=== PATIENT | female | born 1990 | race Caucasian/White ===

== ENCOUNTER 2022-06-29 22:39 | Emergency (ER) | payer OTHER, SELFPAY ==
--- NOTE | ~2022-06-29 | XR_ITS ---
Right foot Technique: AP, oblique, and lateral views were obtained. Clinical History: Pain Findings: There is a nondisplaced oblique, intra-articular fracture at the lateral aspect of the base of the distal phalanx of the great toe. Joint spaces are preserved without erosive or degenerative c hange. Soft tissues are unremarkable. Impression: Oblique, nondisplaced, intra-articular fracture at the lateral aspect of the base of the distal phala nx of the great toe. Reviewed, dictated and finalized at location M. Impression: Oblique, nondisplaced, intra-articular fracture at the lateral aspect of the ba se of the distal phalanx of the great toe.
[2022-06-29 22:44] VITALS: BP 107/73; PULSE 100; RESP 18; TEMP 36.8; O2SAT 100
[2022-06-29 23:53] VITALS: BP 102/74; PULSE 78; RESP 18; O2SAT 98
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
== END 2022-06-30 01:58 ==
PROVIDERS: Emergency Provider Physician Assistant; PCP Internal Medicine
DX: M79.672 Pain in left foot (principal); M79.671 Pain in right foot; Z59.00 Homelessness unspecified
CPT/HCPCS: 73630; 99283; 99284

== ENCOUNTER 2022-07-06 18:54 | Emergency (ER) | payer OTHER, SELFPAY ==
[2022-07-06 19:19] VITALS: BP 123/80; PULSE 88; RESP 18; TEMP 36.8; O2SAT 97
--- NOTE | 2022-07-06 19:57 | ED.ANXIETY ---
HPI - Anxiety General Chief Complaint: Anxiety Stated Complaint: anxiety/drug use today Time Seen by Provider: 07/06/22 19:39 History of Present Illness HPI narrative: Patient is a 31-year-old female here due to depression and suicidal ideations. Patient states that she has felt depressed for a while , and has had some thoughts about hurting herself today. She does not have a plan for what she might do to carry out suicide. Denies history of previous attempts. She does admit to drug use today but states that she has lots of brain fog and does not remember what she used. She states that she feels confused and scared right now but has no physical complaints. She is never been admitted to psychiatric facility. Related Data Home Medications Medication Instructions Recorded Confirmed No Home Medications 07/06/22 07/06/22 Allergies Allergy/AdvReac Type Severity Reaction Status Date / Time No Known Allergies Allergy Unverified 07/06/22 19:42 Review of Systems Review of Systems: Gen.: Denies fevers or chills Eyes: Denies eye pain or visual change ENT: Denies congestion Respiratory: Denies shortness of breath or cough CV: Denies chest pain or palpitations GI: Denies abdominal pain nausea, emesis or diarrhea denies burning, urgency, frequency or hematuria Musculoskeletal: Denies back pain or muscle pain Neuro: Denies numbness, tingling, weakness or focal weakness Psych: Reports suicidal ideations Skin: Denies rash Except as documented, all other systems reviewed and negative [facility] Past Medical History Medical History No pertinent past medical history Surgical History Surgical History No pertinent past surgical history Social History Social History (Updated 06/30/22 @ 01:39 by Carla Groves PA-C) Substance use type: heroin and IV drugs Current Housing: I Do Not Have Housing Exam Narrative: APPEARANCE: Tearful, guarded affect, avoids eye contact, no acute distress Head: Normocephalic and atraumatic. EYES: PERRLA/EOMI, conjunctivae clear NOSE: No nasal drainage EARS: External ear normal in appearance THROAT: Oropharynx is clear. Mucous membranes are moist. NECK: Supple. No adenopathy, no masses. RESPIRATORY: Airway patent, respirations nonlabored. Clear to auscultation bilaterally, no rales, rhonchi, wheezing. CARDIOVASCULAR: Regular rate and rhythm without murmurs, rubs, or gallops. ABDOMINAL: Normoactive bowel sounds. Soft, nontender, nondistended. No rebound tenderness or guarding. MUSCULOSKELETAL: Extremities are warm and well-perfused. Moves all extremities well. No edema. NEURO: Normal speech. No focal neurologic deficits. SKIN: Skin is warm and dry. No rashes. PSYCHIATRIC: Tearful, avoids eye contact Course Vital Signs Vital signs: Vital Signs Temperature 98.3 F 07/06/22 19:19 Pulse Rate 88 07/06/22 19:19 Respiratory Rate 18 07/06/22 19:19 Blood Pressure 123/80 07/06/22 19:19 Pulse Oximetry 97 07/06/22 19:19 Oxygen Delivery Room Air 07/06/22 19:19 Temperature 98.3 F 07/06/22 19:19 Pulse Rate 88 07/07/22 06:07 Respiratory Rate 18 07/07/22 06:07 Blood Pressure 116/88 07/07/22 06:07 Pulse Oximetry 98 07/07/22 06:07 Oxygen Delivery Room Air 07/06/22 19:19 MDM - Anxiety MDM Narrative Medical decision making narrative: 31-year-old female with history of drug use here for evaluation of suicidal ideation. She is tearful but nontoxic in appearance and has normal vital signs. Basic labs are unremarkable. Her TSH is slightly low and her T4 is slightly elevated but unlikely to be causing her suicidal ideation. UDS is positive for benzos. She is medically clear for crisis evaluation. Crisis came to evaluate patient at bedside, believes she needs to be placed inpatient either for substance use or suicidal ideation.
[2022-07-06 20:22] LABS: Basophils Percent Auto 0.5 % (0.2-1.2); Eosinophils Absolute Auto 0.1 K/mm3 (0-0.3); Eosinophils Percent Auto 2.1 % (0-4.4); Hematocrit 36.2 % (37.0-47.0); Hemoglobin 12.1 g/dL (12.0-15.0); Immature Granulocyte Absolute 0.01 K/mm3 (0.00-0.031); Immature Granulocyte Percent A 0.2 % (0-0.5); Lymphocytes Absolute Auto 1.84 K/mm3 (0.9-3.2); Lymphocytes Percent Auto 42.6 % (18.3-44.2); Mean Corpuscular HGB Conc 33.4 g/dl (32-36); Mean Corpuscular Hemoglobin 29.8 pg (26-34); Mean Corpuscular Volume 89.2 fl (80-100); Mean Platelet Volume 8.9 fl (7.4-10.4); Monocytes Absolute Auto 0.4 K/mm3 (0.1-0.6); Monocytes Percent Auto 8.1 % (2.6-8.5); Neutrophils Percent Auto 46.5 % (45.5-73.1); Platelet Count Result 233 k/mm3 (150-375); Red Blood Count 4.06 M/mm3 (4.2-5.4); Red Cell Distribution Width 14.1 % (11.5-14.5); White Blood Count 4.3 K/mm3 (4.5-10.0)
[2022-07-06 20:36] LABS: Ethanol < 10 mg/dL (<10)
[2022-07-06 20:38] LABS: Barbiturate Screen Urine Negative (Negative); Benzodiazepines Screen Urine Positive (Negative)
[2022-07-06 20:39] LABS: Amphetamine Screen Urine Negative (Negative); Cannabinoid Screen Urine Negative (Negative); Cocaine Screen Urine Negative (Negative); Methadone Screen Urine Negative (Negative); Opiate Screen Urine Negative (Negative); Phencyclidine Screen Urine Negative (Negative)
[2022-07-06 20:45] LABS: Alanine Aminotransferase 62 U/L (6-35); Albumin Level 3.7 g/dL (3.5-5.1); Alkaline Phosphatase 55 U/L (38-126); Anion Gap 3 mmol/L (8-16); Aspartate Amino Transferase 40 U/L (14-36); Bilirubin,Total 0.8 mg/dL (0.2-1.3); Blood Urea Nitrogen 9 mg/dL (7-17); Calcium 8.9 mg/dL (8.4-10.2); Carbon Dioxide 32 mmol/L (22-30); Chloride 102 mmol/L (98-107); Estimated CRCL calculation 116 ml/min; Estimated Glomerular Filt Rate > 60; Glucose 98 mg/dL (65-110); Potassium 3.2 mmol/L (3.4-5.0); Sodium 137 mmol/L (137-145)
[2022-07-06 20:49] LABS: Appearance Urine Turbid (Clear); Bacteria Urine 1+ /hpf; Bilirubin Urine 1+ (Negative); Blood Urine Negative (Negative); Calcium Oxalate Crystals Urine Present /hpf; Color Urine Dark Yellow (Yellow); Glucose Urine UA Negative (Negative); Ketones Urine Trace mg/dL (Negative); Leukocyte Esterase Ur Negative LEU/UL (Negative); Need Manual Microscopic Reviewed; Nitrate Urine Negative (Negative); Non Pathogenic Casts 0-2; Protein Urine 1+ mg/dL (Negative); Specific Grav Ur 1.031 (1.001-1.035); Squamous Epithelial Cell Urine Many /hpf (Few); WBC Urine 0-5 /hpf; pH Urine 5.5 (5.0-9.0)
[2022-07-06 20:52] LABS: Add Urine Microscopic? YES
[2022-07-06 21:15] LABS: Thyroid Stimulating Hormone 0.111 uIU/mL (0.465-4.680)
[2022-07-06 21:50] LABS: Influenza A QL RT-PCR Negative (Negative); Influenza B QL RT-PCR Negative (Negative); SARS-CoV-2 RNA PCR Negative (Negative)
[2022-07-07 00:48] VITALS: BP 109/74; PULSE 74; RESP 18; O2SAT 100
--- NOTE | 2022-07-07 03:00 | PC.NURSE ---
[facility] called and states that pt is accepted by Dr. Laguna. They state they will call back with a bed number and number to give nurse report
--- NOTE | 2022-07-07 05:07 | PC.NURSE ---
[facility] on the phone speaking with pt at this time
[2022-07-07 06:07] VITALS: BP 116/88; PULSE 88; RESP 18; O2SAT 98
--- NOTE | 2022-07-07 07:06 | PC.NURSE ---
ordered pt breakfast tray
== END 2022-07-07 07:43 ==
PROVIDERS: Emergency Medicine; Emergency Provider Physician Assistant; PCP Internal Medicine
DX: F32.A Depression, unspecified (principal); R45.851 Suicidal ideations; Z20.822 Contact with and (suspected) exposure to COVID-19
CPT/HCPCS: 36415; 80053; 80307; 81001; 81025; 84436; 84443; 85025; 87636; 99283

== ENCOUNTER 2022-07-24 22:07 | Emergency (ER) | payer OTHER, SELFPAY ==
[2022-07-24 22:11] VITALS: BP 111/71; PULSE 78; RESP 18; TEMP 36.6; O2SAT 100
[2022-07-24 22:34] LABS: Basophils Percent Auto 0.4 % (0.2-1.2); Eosinophils Absolute Auto 0.1 K/mm3 (0-0.3); Eosinophils Percent Auto 0.6 % (0-4.4); Hematocrit 46.6 % (37.0-47.0); Hemoglobin 15.7 g/dL (12.0-15.0); Immature Granulocyte Absolute 0.02 K/mm3 (0.00-0.031); Immature Granulocyte Percent A 0.2 % (0-0.5); Lymphocytes Absolute Auto 3.25 K/mm3 (0.9-3.2); Lymphocytes Percent Auto 33.6 % (18.3-44.2); Mean Corpuscular HGB Conc 33.7 g/dl (32-36); Mean Corpuscular Hemoglobin 30.4 pg (26-34); Mean Corpuscular Volume 90.1 fl (80-100); Mean Platelet Volume 8.8 fl (7.4-10.4); Monocytes Absolute Auto 0.6 K/mm3 (0.1-0.6); Neutrophils Absolute Auto 5.7 K/mm3 (1.3-6.7); Neutrophils Percent Auto 59.2 % (45.5-73.1); Platelet Count Result 397 k/mm3 (150-375); Red Blood Count 5.17 M/mm3 (4.2-5.4); Red Cell Distribution Width 13.9 % (11.5-14.5); White Blood Count 9.7 K/mm3 (4.5-10.0)
[2022-07-24 22:47] LABS: Alanine Aminotransferase 73 U/L (6-35); Alkaline Phosphatase 64 U/L (38-126); Anion Gap 13 mmol/L (8-16); Aspartate Amino Transferase 58 U/L (14-36); Bilirubin,Total 0.9 mg/dL (0.2-1.3); Blood Urea Nitrogen 8 mg/dL (7-17); Calcium 9.8 mg/dL (8.4-10.2); Carbon Dioxide 24 mmol/L (22-30); Chloride 108 mmol/L (98-107); Estimated CRCL calculation 87 ml/min; Estimated Glomerular Filt Rate > 60; Ethanol 156 mg/dL (<10); Glucose 105 mg/dL (65-110); Potassium 3.7 mmol/L (3.4-5.0); Sodium 145 mmol/L (137-145)
[2022-07-24 22:56] LABS: Appearance Urine Clear (Clear); Bacteria Urine None Seen /hpf; Bilirubin Urine Negative (Negative); Blood Urine 2+ (Negative); Color Urine Yellow (Yellow); Glucose Urine UA Negative (Negative); Ketones Urine Negative (Negative); Leukocyte Esterase Ur Negative LEU/UL (Negative); Nitrate Urine Negative (Negative); Non Pathogenic Casts 0-2; Protein Urine Negative (Negative); Squamous Epithelial Cell Urine Few /hpf (Few); Urobilinogen Urine 0.2 mg/dL (<2.0); WBC Urine 0-5 /hpf; pH Urine 5.5 (5.0-9.0)
[2022-07-24 23:07] VITALS: BP 105/65; PULSE 72; RESP 14; TEMP 36.6; O2SAT 99
[2022-07-24 23:08] LABS: Amphetamine Screen Urine Negative (Negative); Barbiturate Screen Urine Negative (Negative); Benzodiazepines Screen Urine Negative (Negative); Cannabinoid Screen Urine Negative (Negative); Cocaine Screen Urine Negative (Negative); Methadone Screen Urine Negative (Negative); Opiate Screen Urine Negative (Negative); Phencyclidine Screen Urine Negative (Negative)
--- NOTE | 2022-07-24 23:35 | PC.NURSE ---
Patient states she has no SI or HI. Patient states she only wants someone to talk to.
[2022-07-24 23:40] LABS: Add Urine Microscopic? YES
[2022-07-24 23:41] VITALS: BP 108/68; PULSE 60; RESP 14; O2SAT 100
[2022-07-25] VITALS (8 sets, daily range): BP systolic 97–124; BP diastolic 60–74; PULSE 60–77; RESP 14–18; O2SAT 99–100
--- NOTE | 2022-07-25 00:22 | ED.GENADULT ---
HPI - General Adult General Chief complaint: Psychiatric Symptoms <Leana Rodriguez PA-C - Last Filed: 07/25/22 02:50> Stated complaint: SI, +ETOH <Leana Rodriguez PA-C - Last Filed: 07/25/22 02:50> Time Seen by Provider: 07/24/22 22:43 <Leana Rodriguez PA-C - Last Filed: 07/25/22 02:50> History of Present Illness HPI narrative: 31-year-old female brought in by police due to suicidal statements. Patient is uncooperative and does not provide reliable history. When asked why she is in the ED she says I don't know, I guess cause i'm drunk . Admits to drinking several beers tonight but no other drug use. Unclear what was said to police to bring her in the ED. States I just want to talk to someone . She was recently hospitalized for SI and substance use. <Leana Rodriguez PA-C - Last Filed: 07/25/22 02:50> Related Data Home medications: Home Medications Medication Instructions Recorded Confirmed No Home Medications 07/06/22 07/06/22 <Leana Rodriguez PA-C - Last Filed: 07/25/22 02:50> Allergies/adverse reactions: Allergies Allergy/AdvReac Type Severity Reaction Status Date / Time No Known Allergies Allergy Unverified 07/24/22 22:23 <Leana Rodriguez PA-C - Last Filed: 07/25/22 02:50> Review of Systems Review of Systems: ROS unobtainable: Yes unobtainable due to mental status <Leana Rodriguez PA-C - Last Filed: 07/25/22 02:50> [facility] Past Medical History Medical History: Medical History No pertinent past medical history <Leana Rodriguez PA-C - Last Filed: 07/25/22 02:50> Surgical History Surgical History: Surgical History No pertinent past surgical history <Leana Rodriguez PA-C - Last Filed: 07/25/22 02:50> Social History Social History: Social History (Updated 06/30/22 @ 01:39 by Carla Groves PA-C) Substance use type: heroin and IV drugs Current Housing: I Do Not Have Housing <Leana Rodriguez PA-C - Last Filed: 07/25/22 02:50> Exam Narrative: Gen: Lying on stretcher on stomach, sleeping, no acute distress Eyes: EOMI, no icterus Pulm: Respirations even and unlabored, symmetric thorax expansion, no audible stridor or visible cyanosis CV: Regular rate per telemetry GI: No distension, no voluntary/involuntary guarding Neuro: AOx4, moves all extremities without apparent difficulty or weakness, follows commands Skin: No jaundice, no visible bruising, rashes, lesions or wounds on exposed skin Psych: Normal mood/affect, insight/judgement good, adequate fund of knowledge, recent/remote memory intact <Leana Rodriguez PA-C - Last Filed: 07/25/22 02:50> Course Course Emergency Course: Patient was medically cleared for psychiatric evaluation and was seen by the mental health screener. We determined the patient met the criteria for voluntary admission and currently mental health is working on placement. <Lenin Urban MD - Last Filed: 07/25/22 06:37> LEAN LEADER/PA Physician Supervision This visit was performed by both the physician and an APC. I performed all aspects of the MDM as documented <Lenin Urban MD - Last Filed: 07/25/22 06:37> Reevaluation(s) Reevaluation #1: 07:00 - The patient was signed out to me by Dr. Chirinos, pending placement for voluntary psychiatric admission. 10:25 - The patient was accepted by Dr. Heaton at [facility]. 17:30 - Transport is expected at 09:00 tomorrow (26 Jul 2022). 19:00 - Patient signed out to oncoming ED physician, Dr. Richards pending transfer to [facility] <Mick Howard MD - Last Filed: 07/25/22 19:19> Date: 07/25/22 <Mick Howard MD - Last Filed: 07/25/22 19:19> 07/25/22 <Tracy Richards MD - Last Filed: 07/26/22 10:51> Reevaluation #2: Patient i
[2022-07-25 02:39] LABS: Ethanol 70 mg/dL (<10)
--- NOTE | 2022-07-25 04:58 | PC.NURSE ---
[facility] advised that they will look for places to accept patient
--- NOTE | 2022-07-25 08:30 | PC.NURSE ---
Breakfast tray given to pt at this time
--- NOTE | 2022-07-25 10:37 | PC.NURSE ---
pt was accepted to [facility] they states pt can arrive anytime after 1330. Transportation set up.
[2022-07-25 11:06] LABS: SARS-CoV-2 RNA PCR Negative (Negative)
--- NOTE | 2022-07-25 17:32 | PC.NURSE ---
Ordered Dinner for patient
[2022-07-26 06:53] VITALS: BP 149/91; PULSE 54; RESP 13; TEMP 36.7; O2SAT 100
--- NOTE | 2022-07-26 07:18 | PC.NURSE ---
Assumed care of pt, pt is alert to verbal stimuli. Discussed POC. Ordered breakfast tray for pt at this time.
[2022-07-26 10:53] VITALS: BP 137/86; PULSE 61; RESP 15; TEMP 36.6; O2SAT 100
== END 2022-07-26 10:55 ==
PROVIDERS: Emergency Medicine; Physician Assistant; Emergency Provider Preventive Medicine Aerospace Medicine; PCP Internal Medicine
DX: F10.920 Alcohol use, unspecified with intoxication, uncomplicated (principal); F32.A Depression, unspecified; Z20.822 Contact with and (suspected) exposure to COVID-19
CPT/HCPCS: 36415; 80053; 80307; 81001; 81025; 84443; 85025; 99285; U0003; U0005